=== PATIENT | male | born 1965 | race Caucasian/White ===

== ENCOUNTER → 2017-02-12 | Outpatient (CLI) | payer OTHER | LOC: MHCPAIN 11:10 | DX: G89.29 Other chronic pain (principal); M47.812 Spondylosis without myelopathy or radiculopathy, cervical region; R51 Headache; F17.210 Nicotine dependence, cigarettes, uncomplicated | CPT/HCPCS: G0463 ==

== ENCOUNTER → 2017-03-10 | Outpatient (CLI) | payer OTHER | LOC: MHCPAIN 14:56 | DX: G89.29 Other chronic pain (principal); M50.121 Cervical disc disorder at C4-C5 level with radiculopathy; R51 Headache; F17.210 Nicotine dependence, cigarettes, uncomplicated | CPT/HCPCS: G0463 ==

== ENCOUNTER → 2017-04-27 | Outpatient (CLI) | payer OTHER | LOC: MHCPAIN 15:39 | DX: G89.29 Other chronic pain (principal); M50.121 Cervical disc disorder at C4-C5 level with radiculopathy; R51 Headache; F17.210 Nicotine dependence, cigarettes, uncomplicated | CPT/HCPCS: G0463 ==

== ENCOUNTER → 2017-04-30 | Outpatient (CLI) | payer OTHER | LOC: COL.RAD 14:45 | DX: M17.11 Unilateral primary osteoarthritis, right knee (principal); M94.8X8 Other specified disorders of cartilage, other site ==

== ENCOUNTER → 2017-05-13 | Outpatient (CLI) | payer OTHER | LOC: MHCPAIN 14:53 | DX: M50.321 Other cervical disc degeneration at C4-C5 level (principal) ==

== ENCOUNTER → 2017-05-19 | Outpatient (CLI) | payer OTHER | LOC: MHCPAIN 15:31 | DX: G89.29 Other chronic pain (principal); M50.121 Cervical disc disorder at C4-C5 level with radiculopathy; R51 Headache; F17.210 Nicotine dependence, cigarettes, uncomplicated | CPT/HCPCS: G0463 ==